=== PATIENT | female | born 1960 | race Caucasian/White ===

== ENCOUNTER 2024-08-17 16:08 | Emergency (ER) | payer MEDICAID, SELFPAY ==
[2024-08-17 17:45] VITALS: BP 152/83; PULSE 74; RESP 18; TEMP 36.7; O2SAT 98; BMI 31.8
--- NOTE | 2024-08-17 17:47 | XR_ITS ---
Examination: Foot, left, 3 views Technique: AP, oblique, lateral views foot, 3 views Date and time of exam: August 17 2024 1828 hrs. Indications: Patient fell 2 days ago, injury to foot, foot pain Findings: Severe hallux valgus bunion deformity Acute fracture distal second metatarsal without significant displacement Impression: Acute fracture distal second metatarsal
--- NOTE | 2024-08-17 17:47 | XR_ITS ---
EXAMINATION: Ankle, left 3 views . Technique: Ankle AP, oblique, lateral 3 views Date and time of exam: August 17, 2024 1828 hrs. Indications: Patient fell 2 days ago with injury to the ankle, ankle pain. Findings: Acute fractures distal fibular shaft No significant displacement No ankle dislocation Impression: Acute fractures distal fibular shaft
--- NOTE | 2024-08-17 17:47 | XR_ITS ---
Examination: Duplex scan of the lower extremity, unilateral left complete Date and time of exam: August 17, 2024 1916 hrs. Indications: Bruising left lower extremity today Technique: Duplex scan of the extremity veins using B-mode/grayscale imaging and Doppler spectral analysis and color flow Attention is directed to internal echogenicity, compression and augmentation involving these veins, color flow assessment, spectral analysis Findings: Major deep venous structures in the extremity demonstrate normal course and caliber. There is no evidence of deep vein thrombosis. Normal color flow and spectral analysis Impression: Negative for DVT..
--- NOTE | 2024-08-17 17:48 | PD.EDRME ---
Rapid Medical Screening Exam RME Arrival date/time: 08/17/24 16:08 64-year-old female who is developmentally delayed and caregiver at bedside presents emergency department complaining of left lower extremity edema and bruising to ankle. Caregiver reports is unsure when injury occurred. Chief Complaint: Ankle/Foot Injury Vital signs: Vital Signs Temperature 98.1 F 08/17/24 17:45 Pulse Rate 74 08/17/24 17:45 Respiratory Rate 18 08/17/24 17:45 Blood Pressure 152/83 H 08/17/24 17:45 Pulse Oximetry (%) 98 08/17/24 17:45 Oxygen Delivery Method Room Air 08/17/24 17:45 Vital signs reviewed by provider: Yes
[2024-08-17 20:12] VITALS: BP 131/88; PULSE 66; RESP 18; TEMP 36.8; O2SAT 99
--- NOTE | 2024-08-17 21:57 | EDNOTE_ITS ---
Lower Extremity Injury RME/HPI General Chief Complaint: Ankle/Foot Injury Stated Complaint: SWELLING, DISCOLORATION TO LEFT FOOT Arrival date/time: 08/17/24 16:08 Limitations: other (developmental delayed) RME / HPI RME / HPI Narrative: 08/17/24 16:08 64-year-old female who is developmentally delayed and caregiver at bedside presents emergency department complaining of left lower extremity edema and bruising to ankle. Caregiver reports is unsure when injury occurred. DR. RODRIGUEZ MAIN ED EVALUATION: 64 year old female with past medical history significant for developmental delay and breast cancer, who lives in a [facility] where they noticed starting today she was reluctant to get up to go to the bathroom. They do not acknowledge or or aware of any trauma. They did notice some bruising of her left foot. No other symptoms or complaints at this time. Related Data Home Medications ?Medication ?Instructions ?Recorded ?Confirmed benazepril 20 mg tablet (Lotensin) 20 mg PO QDAY #0 tabs 10/26/15 09/29/19 hydrochlorothiazide 12.5 mg 25 mg PO QAM #0 caps 05/05/16 09/29/19 capsule (Microzide) folic acid 800 mcg tablet 1 mg PO QDAY #0 tabs 07/27/16 09/29/19 exemestane 25 mg tablet (Aromasin) 25 mg PO QDAY 09/29/19 09/29/19 prednisone 5 mg tablet 5 mg PO QDAY 09/29/19 09/29/19 triamcinolone 0.1 %-niacinamide 4 applic topical 09/29/19 % topical cream Previous Rx's ?Medication ?Instructions ?Recorded ACETAMINOPHEN (Tylenol Tab) 650 mg PO Q6HR PRN PAIN #60 tabs 02/23/16 hydrocortisone 1 % topical cream 1 applicatio topical TID PRN rash 09/30/19 #57 grams Allergies Allergy/AdvReac Type Severity Reaction Status Date / Time Sulfa (Sulfonamide Allergy Unknown Rash Verified 08/08/17 14:33 Antibiotics) Review of Systems Review of Systems ROS Unobtainable: unobtainable due to medical condition Past Medical History Past Medical History CARDIAC: Positive Hypertension; Negative Congestive Heart Failure RESPIRATORY: Negative Chronic Obstructive Pulmonary Disease (COPD) GENITOURINARY: Negative Renal Disease ENDOCRINE: Negative Diabetes Mellitus Type 1 or Diabetes Mellitus Type 2 Social History SMOKING STATUS: Never smoker SUBSTANCE USE: does not use ALCOHOL: Never ED Exam General Limitations: Present other (developmental delayed) General appearance: Present alert and in no apparent distress Head Head exam: Present atraumatic Eye Eye exam: Present normal appearance, PERRL and EOMI ENT ENT exam: Present normal exam, normal oropharynx and mucous membranes moist Neck Neck exam: Present normal inspection, full ROM and trachea midline Chest Chest inspection: Present normal inspection and symmetric chest wall rise Respiratory Respiratory exam: Present normal lung sounds bilaterally Cardiovascular Cardiovascular exam: Present regular rate, normal rhythm and normal heart sounds Abdominal Exam Abdominal exam: Present soft and normal bowel sounds Extremities Exam Extremities exam: Present other (Swelling and tenderness on her left malleolus, over her mid metatarsal with also ecchymosis of the midfoot. NV intact. Posterior and splint placed and neurovascular intact placement.) Back Exam Back exam: Present normal inspection and full ROM Neurological Exam Neurological exam: Present other (At baseline) Psychiatric Psychiatric exam: Present other (At baseline) Skin Skin exam: Present warm, dry, intact and normal color Course Quality Measures none Orders Category Date Time Status Splint / Immobilizer STAT Care 08/17/24 21:05 Completed Splint / Immobilizer STAT Care 08/17/24 21:05 Completed US venous doppler LE LT Stat Exams 08/17/24 17:47 Completed XR ankle comp LT min 3V Stat Exams 08/17/24 17:47 Completed XR foot comp LT min 3V Stat Exams 08/17/24 17:47 Completed Vital Signs Vital signs: Vital Signs Temperature 98.1 F 08/17/24 17:45 Pulse Rate 74 08/17/24 17:45 Respiratory Rate 18 08/17/24 17:45 Blood Pressure 152/83 H 08/17/24 17:45 Pulse Oximetry (%) 98 08/17/24 17:45 Oxygen Delivery Method Room Air 08/17/24 17:45 Procedures -ED Splint Fabrication: Pre-Fabricated Type: Posterior Leg Reason for Splint: Optimal Positioning Circulation Distal to Splint: Yes Movement Distal to Splint: Yes Senation Distal to Splint: Yes Tolerance: Tolerates Well Extremity Injury, Lower MDM Narrative MDM Narrative:: We will have her follow up with orthopedics as outpatient, Dr Bello. ------- Bev Garnica am scribing for and in the presence of Dr. Rodriguez. Patient data External records reviewed:: [facility] previous records (Reviewed last oncology note by Dr. Gardner dated 08/25/20.) Clinical information provided by:: patient Social determinants that could affect healthcare access:: housing (Lives in a [facility]) Patient has the following chronic illnesses:: Developmental delay and breast cancer. How is presenting disease/condition affected by chronic disease/condition?: uneffected by Evaluation data The following diagnostics were reviewed and interpreted by me:: radiology exam(s) Lab and/or radiology exams considered but not ordered:: none Interpretation Summary: Procedure(s): US venous doppler LE Accession Number(s): [id number] cc: Alta Knowles [employer]; Beto Law MD; Dannielle Montelongo ([facility]),Tucker BOATENG~ Examination: Duplex scan of the lower extremity, unilateral left complete Date and time of exam: August 17, 2024 1916 hrs. Indications: Bruising left lower extremity today Technique: Duplex scan of the extremity veins using B-mode/grayscale imaging and Doppler spectral analysis and color flow Attention is directed to internal echogenicity, compression and augmentation involving these veins, color flow assessment, spectral analysis Findings: Major deep venous structures in the extremity demonstrate normal course and caliber. There is no evidence of deep vein thrombosis. Normal color flow and spectral analysis Impression: Negative for DVT.. Dictated By: Beto Law MD Procedure(s): XR foot comp LT min 3V Accession Number(s): [id number] cc: Alta Knowles [employer]; Beto Law MD; Dannielle Montelongo ([facility]),Tucker [employer]~ Examination: Foot, left, 3 views Technique: AP, oblique, lateral views foot, 3 views Date and time of exam: August 17 20241827 hrs. Indications: Patient fell 2 days ago, injury to foot, foot pain Findings: Severe hallux valgus bunion deformity Acute fracture distal second metatarsal without significant displacement Impression: Acute fracture distal second metatarsal Dictated By: Beto Law MD Procedure(s): XR ankle comp LT min 3V Accession Number(s): [id number] cc: Alta Knowles [employer]; Beto Law MD; Dannielle Montelongo ([facility]),Tucker SEQUEIRAP~ EXAMINATION: Ankle, left 3 views . Technique: Ankle AP, oblique, lateral 3 views Date and time of exam: August 17, 2024 182 hrs. Indications: Patient fell 2 days ago with injury to the ankle, ankle pain. Findings: Acute fractures distal fibular shaft No significant displacement No ankle dislocation Impression: Acute fractures distal fibular shaft Dictated By: Beto Law MD Medications / Prescriptions Medications or Prescriptions considered but not ordered:: none Medication administrations:: none Consultations Consultation(s) initiated? (list below): No Diagnosis Extremity Injury, Lower Differential Diagnosis: ankle sprain and strain, fracture of toe and ankle fracture Most likely diagnosis given after review of the tests above:: Ankle fracture Metatarsal bone fracture Admission Indicated Admission indicated?: not indicated Admission Request Was there a request for admission?: No Disposition Plan Disposition Plan: Discharge Discharge Attestation Discharge Attestation: The patient and all family members were given an opportunity to ask questions and understood the discharge instructions. Discharge instructions specifically effects, indications for sooner follow up or return to the emergency department, and the expected course of current diagnosis. Patient condition: Stable Discharge Plan Plan Patient Disposition: HOME (Self Care) Prescriptions/Referrals Prescriptions/Med Rec: No Action benazepril [Lotensin] 20 MG tablet 20 mg PO QDAY Qty: 0 ACETAMINOPHEN (Tylenol Tab) 325 MG tablet 650 mg PO Q6HR PRN (Reason: PAIN) Qty: 60 0RF hydrochlorothiazide [Microzide] 12.5 MG capsule 25 mg PO QAM Qty: 0 folic acid 0.8 MG tablet 1 mg PO QDAY Qty: 0 prednisone 5 mg Tablet 5 mg PO QDAY exemestane [Aromasin] 25 mg Tablet 25 mg PO QDAY triamcinolone-niacinamide 0.1-4 % Cream TOPICAL hydrocortisone 1 % cream 1 applicatio TOPICAL TID PRN (Reason: rash) Qty: 57 0RF Referrals: Alta Knowles FNP [Primary Care Provider] - In 1 week Abdirahman Bello MD [Physician] - In 1 week Problem List Clinical Impression: Ankle fracture, Metatarsal bone fracture Patient/Caregiver Discharge Instructions Education Materials: ED Fracture, Foot, ED Fracture, Lower Extremity, ED Splint Care, Fiberglass Additional Instructions: After 2-3 days you can remove splint and change to a cam boot. Follow-up with orthopedics provided in 1 week, call office on Sunday to schedule appointment. You can take [id number] ibuprofen and/or Tylenol as needed for pain. You can return to the emergency department sooner if symptoms worsen or if you notice any new, concerning issues. Print Language: Romanian Stand Alone Forms: Jennyfer Award Info., Patient Portal Info Letter
== END 2024-08-17 22:19 | disposition home or self-care (01) ==
PROVIDERS: Emergency Provider Emergency Medicine; PCP Registered Nurse Community Health
DX: S82.892A Other fracture of left lower leg, initial encounter for closed fracture (principal); S92.325A Nondisplaced fracture of second metatarsal bone, left foot, initial encounter for closed fracture; W18.30XA Fall on same level, unspecified, initial encounter
CPT/HCPCS: 29515; 73610; 73630; 93971; 99284

== ENCOUNTER 2024-11-12 12:41 | Outpatient (RCR) | payer MEDICAID, SELFPAY ==
[2024-11-11 14:18] LABS: Basophils % (Auto) 0 % (0-2.5); Eosinophils % (Auto) 0 % (0-10); Hematocrit 36.2 % (36.0-46.0); Hemoglobin 12.5 g/dL (12.0-16.0); Immature Granulocytes % (Auto) 1 % (0-0); Immature Granulocytes Auto 0.05 Thou/mm3 (0.00-0.00); Lymphocytes # (Auto) 0.6 Thou/mm3 (1.0-4.8); Lymphocytes % (Auto) 8 % (10-50); Mean Corpuscular HGB Conc 34.5 g/dl (31.0-37.0); Mean Corpuscular Hemoglobin 29.6 pg (25.0-35.0); Mean Corpuscular Volume 86 fL (80-100); Monocytes # (Auto) 0.3 Thou/mm3 (0.0-0.8); Monocytes % (Auto) 3 % (0-12); Neutrophils # (Auto) 6.8 Thou/mm3 (1.8-7.7); Neutrophils % (Auto) 88 % (37-80); Nucleated Red Blood Cell % 0 /100 WBC (0); Platelet Count 291 Thou/mm3 (140-440); RDW Standard Deviation 38.5 fL (36.4-46.3); Red Blood Count 4.22 Miln/mm3 (4.00-5.20); White Blood Count 7.8 Thou/mm3 (3.6-11.0)
[2024-11-11 14:45] LABS: Alanine Aminotransferase 15 U/L (10-49); Albumin, Serum 3.9 gm/dL (3.4-4.8); Albumin/Globulin Ratio 1.4 (1.2-2.2); Alkaline Phosphatase 36 U/L (46-116); Anion Gap 8 (7-16); Aspartate Amino Transferase 10 U/L (0-34); BUN/Creatinine Ratio 18 Ratio (12-20); Bilirubin,Total 0.3 mg/dL (0.3-1.2); Blood Urea Nitrogen 11 mg/dL (9-23); Calcium 9.3 mg/dL (8.3-10.6); Calcium (Corrected) 9.4 mg/dL (8.5-10.1); Carbon Dioxide 30.6 mMol/L (20.0-31.0); Chloride 97 mMol/L (98-107); Creatinine (Component) 0.6 mg/dL (0.6-1.3); Globulin 2.7 gm/dL (2.3-3.5); Glucose 149 mg/dL (74-106); Osmolality,Calculated 274 (275-295); Potassium 3.6 mMol/L (3.4-5.1); Sodium 136 mMol/L (136-145); Total Protein 6.6 gm/dL (5.7-8.2); eGFR > 60 See Note
[2024-11-11 14:56] LABS: Carcinoembryonic Antigen 0.8 ng/mL (0.0-5.0)
== END 2024-12-05 23:59 | disposition home or self-care (01) ==
LOC: SCTC 12:41
PROVIDERS: Internal Medicine Hematology & Oncology; PCP Registered Nurse Community Health; Referring Provider Registered Nurse Community Health; Visit Provider Nurse Practitioner Family
DX: C50.111 Malignant neoplasm of central portion of right female breast (principal); Z17.0 Estrogen receptor positive status [ER+]; Z17.21 Progesterone receptor positive status; Z17.32 Human epidermal growth factor receptor 2 negative status; Z90.13 Acquired absence of bilateral breasts and nipples; M81.0 Age-related osteoporosis without current pathological fracture; Z79.810 Long term (current) use of selective estrogen receptor modulators (SERMs); F79 Unspecified intellectual disabilities
CPT/HCPCS: 36591; 80053; 82378; 85025; 86300; 99212; A4216; J1642; G0463

== ENCOUNTER 2025-01-13 08:17 | Outpatient (RCR) | payer MEDICAID, SELFPAY | END 2025-02-04 23:59 | disposition home or self-care (01) | LOC: SCTC 08:17 | PROVIDERS: PCP Registered Nurse Community Health; Referring Provider Registered Nurse Community Health; Visit Provider Internal Medicine Hematology & Oncology | DX: Z45.2 Encounter for adjustment and management of vascular access device (principal); C50.111 Malignant neoplasm of central portion of right female breast; Z17.0 Estrogen receptor positive status [ER+]; Z17.21 Progesterone receptor positive status; Z17.32 Human epidermal growth factor receptor 2 negative status; Z90.13 Acquired absence of bilateral breasts and nipples; F79 Unspecified intellectual disabilities; Z99.3 Dependence on wheelchair | CPT/HCPCS: 36591; 96523; A4216; J1642 ==

== ENCOUNTER 2025-03-17 08:33 | Outpatient (RCR) | payer MEDICAID, SELFPAY | END 2025-04-06 23:59 | disposition home or self-care (01) | LOC: SCTC 08:33 | PROVIDERS: PCP Registered Nurse Community Health; Referring Provider Registered Nurse Community Health; Visit Provider Internal Medicine Hematology & Oncology | DX: Z45.2 Encounter for adjustment and management of vascular access device (principal); C50.111 Malignant neoplasm of central portion of right female breast; Z17.0 Estrogen receptor positive status [ER+]; Z17.21 Progesterone receptor positive status; Z17.32 Human epidermal growth factor receptor 2 negative status; Z90.13 Acquired absence of bilateral breasts and nipples; Z79.810 Long term (current) use of selective estrogen receptor modulators (SERMs); F72 Severe intellectual disabilities; M81.0 Age-related osteoporosis without current pathological fracture | CPT/HCPCS: 96523; A4216; J1642 ==

== ENCOUNTER 2025-06-16 09:00 | Outpatient (RCR) | payer MEDICAID, SELFPAY | END 2025-07-07 23:59 | disposition home or self-care (01) | LOC: SCTC 09:00 | PROVIDERS: PCP Registered Nurse Community Health; Referring Provider Registered Nurse Community Health; Visit Provider Nurse Practitioner Family | DX: C50.111 Malignant neoplasm of central portion of right female breast (principal); Z17.0 Estrogen receptor positive status [ER+]; Z17.21 Progesterone receptor positive status; Z17.32 Human epidermal growth factor receptor 2 negative status; Z90.13 Acquired absence of bilateral breasts and nipples; Z79.810 Long term (current) use of selective estrogen receptor modulators (SERMs); M81.0 Age-related osteoporosis without current pathological fracture; F79 Unspecified intellectual disabilities | CPT/HCPCS: 99212; G0463 ==